=== PATIENT | female | born 1965 | race Caucasian/White ===

== ENCOUNTER 2019-01-10 09:52 | Outpatient (CLI) | payer BC | END 2019-01-10 23:59 | disposition home or self-care (01) | LOC: CFH 09:52 | PROVIDERS: ATTEND Obstetrics & Gynecology | DX: Z12.31 Encounter for screening mammogram for malignant neoplasm of breast (principal) | CPT/HCPCS: 77063; 77067 ==

== ENCOUNTER → 2019-01-21 | Outpatient (CLI) | payer BC | END | disposition home or self-care (01) | LOC: CFH 06:55 | PROVIDERS: ATTEND Obstetrics & Gynecology | DX: N60.02 Solitary cyst of left breast (principal) | CPT/HCPCS: 77065 ==

== ENCOUNTER → 2020-07-28 | Outpatient (CLI) | payer BC | END | disposition home or self-care (01) | LOC: CFH 10:08 | PROVIDERS: ATTEND Obstetrics & Gynecology | DX: Z12.31 Encounter for screening mammogram for malignant neoplasm of breast (principal) | CPT/HCPCS: 77063; 77067 ==